=== PATIENT | female | born 2000 | race Caucasian/White ===

== ENCOUNTER 2021-12-19 19:46 | Emergency (ER) | payer OTHER ==
[2021-12-19 19:57] VITALS: BP 126/77
[2021-12-19] MEDS ORDERED: KETOROLAC 60 MG/2 ML VIAL IM STA (20:15)
[2021-12-19] MEDS ORDERED: PROMETHAZINE 25 MG/1 ML VIAL IM STA (20:15)
[2021-12-19] MEDS ORDERED: diphenhydrAMINE INJ 50 MG/ML VIAL IM STA (20:15)
--- NOTE | 2021-12-19 20:56 | ED Physician Documentation ---
PD HPI HEADACHE - Stated complaint Stated Complaint: HEADACHE,VOMIT - Chief complaint Chief Complaint: Neuro - History obtained from History obtained from: Patient - History of Present Illness Timing - onset: Today Timing - onset during: Rest Timing - duration: Days (1) Timing - details: Gradual onset Pain level max: 8 Pain level now: 8 Location: Global Quality: Throbbing, Aching Associated symptoms: Nausea, Vomiting. No: Fever, Stiff neck, Weakness, Numbness, Syncope, Seizure, Eye pain Improved by: Rest, Dark room Worsened by: Light, Noise Contributing factors: No: Anticoagulated, Possible carbon monoxide, Hypertension, Recent illness, Trauma - Additional information Additional information: 21-year-old female, [employer] [place] presents to the emergency department with a headache that started today, gradual in onset, holoacranial. Similar to her usual migraines. Described as dull and aching. Has had nausea and vomiting today as well. No fever. No focal neurological deficits. Denies any possibility of . Review of Systems Ten Systems: 10 systems reviewed and negative Constitutional: denies: Fever, Chills Nose: denies: Rhinorrhea / runny nose, Congestion Respiratory: denies: Cough Skin: denies: Rash Musculoskeletal: denies: Neck pain, Back pain Neurologic: denies: Headache PD PAST MEDICAL HISTORY - Past Medical History Past Medical History: Yes Neuro: Migraines - Past Surgical History Past Surgical History: No - Present Medications Home Medications: Ambulatory Orders Medication Instructions Recorded Confirmed SUMAtriptan [Imitrex] PO PRN PRN 12/19/21 - Allergies Allergies/Adverse Reactions: Allergies Allergy/AdvReac Type Severity Reaction Status Date / Time No Known Drug Allergies Allergy Verified 12/19/21 19:54 PD ED PE NORMAL - Vitals Vital signs reviewed: Yes - General General: Alert and oriented X 3, No acute distress, Well developed/nourished - HEENT HEENT: PERRL, Moist mucous membranes - Neck Neck: Supple, no meningeal sign - Cardiac Cardiac: RRR, Strong equal pulses - Respiratory Respiratory: No respiratory distress, Clear bilaterally - Abdomen Abdomen: Soft, Non tender, Non distended - Back Back: No spinal TTP - Derm Derm: Warm and dry - Extremities Extremities: No edema, No calf tenderness / cord - Neuro Neuro: Alert and oriented X 3, vrt mechanic 2-12 intact, No motor deficit, No sensory deficit, Normal speech Eye Opening: Spontaneous Motor: Obeys Commands Verbal: Oriented GCS Score: 15 - Psych Psych: Normal mood, Normal affect Results - Vitals Vitals: Vital Signs - 24 hr 12/19/21 12/19/21 12/19/21 19:54 20:14 21:01 Temperature 36.5 C Heart Rate 77 Respiratory 16 15 14 Rate Blood Pressure 126/77 O2 Saturation 97 Oxygen O2 Source Room air PD MEDICAL DECISION MAKING - ED course Complexity details: reviewed results, re-evaluated patient, considered differential, d/w patient ED course: Headache resolved with Toradol, Phenergan and Benadryl. Feels much better. Headache 0 out of 10. She has having frequent headaches, up to 3 times per week. Recommend that she speak with her primary care provider tomorrow regarding prophylaxis for migraines. No evidence of subarachnoid hemorrhage, tumor. No evidence of infection. Patient counseled regarding signs and symptoms for which I believe and urgent re-evaluation would be necessary. Patient with good understanding of and agreement to plan and is comfortable going home at this time This document was made in part using voice recognition software. While efforts are made to proofread this document, sound alike and grammatical errors may occur. Departure - Departure Disposition: 01 Home, Self Care Clinical Impression: Migraine Qualifiers: Migraine type: unspecified Status migrainosus presence: without status migrainosus Intractability: not intractable Qualified Code(s): G43.909 - Migraine, unspecified, not intractable, without status migrainosus Condition: Good Instructions: ED Headache Migraine Comments: Please follow-up with your doctor tomorrow for further care. They may want to discuss daily prophylactic therapy for your migraine headaches with the medication such as Propanolol, amitriptyline or venlafaxine. Topiramate can be used as well.. They may also want to consider a neurology referral as you are having headaches 3-4 times per week. Please return if you worsen. Discharge Date/Time: 12/19/21 21:02
== END 2021-12-19 21:02 | disposition home or self-care (01) ==
LOC: ED 19:46
DX: G43.909 Migraine, unspecified, not intractable, without status migrainosus (principal)
CPT/HCPCS: 96372; 99282; 99283; J1200